=== PATIENT | male | born 1985 | race Caucasian/White ===

== ENCOUNTER 2021-03-31 08:08 | Emergency (ER) | payer OTHER ==
[~2021-03-31] VITALS: Ht 177.8 cm; Wt 94.0 kg
--- NOTE | 2021-03-31 08:55 | REP ---
INDICATION: fall injury COMPARISON: None. TECHNIQUE: AP, lateral, bilateral oblique views right wrist. FINDINGS: Comminuted intra-articular Colles' fracture of the distal radius. Carpal bones appear intact. IMPRESSION: Comminuted Colles' fracture of the distal radius. <Electronically signed by Blake Vera > 03/31/21 0810
[2021-03-31] MEDS ORDERED: ONDANSETRON 4MG/2ML VIAL IV ONE (09:55)
[2021-03-31] MEDS ORDERED: LR 1,000 ML IV SCH (09:55)
[2021-03-31] MEDS ORDERED: fentaNYL 100 MCG/2 ML INJECTION (J3010) IV ONE (09:55)
[2021-03-31 10:37] LABS: BASO % 0.3 % (0.0-1.0); EOS % 0.2 % (0.0-3.0); HEMATOCRIT 45.9 % (42.0-52.0); HEMOGLOBIN 15.2 g/dl (13.5-17.5); LYMPH # 1.2 10^3/uL (1.5-5.0); LYMPH % 8.7 % (24.0-44.0); MEAN CORPUSCULAR HEMOGLOBIN 30.5 pg (27.0-33.0); MEAN CORPUSCULAR HGB CONC 33.1 g/dl (32.0-36.5); MEAN CORPUSCULAR VOLUME 92.2 fl (80.0-96.0); MONO # 0.8 10^3/uL (0.0-0.8); NEUTROPHILS # 11.7 10^3/uL (1.5-8.5); NEUTROPHILS % 84.3 % (36.0-66.0); PLATELET COUNT, AUTOMATED 324 10^3/uL (150-450); RED BLOOD COUNT 4.98 10^6/uL (4.30-6.10); WHITE BLOOD COUNT 13.9 10^3/uL (4.0-10.0)
[2021-03-31 10:59] LABS: BLOOD UREA NITROGEN 14 MG/DL (7-18); CALCIUM LEVEL 9.2 MG/DL (8.5-10.1); CARBON DIOXIDE LEVEL 29 MEQ/L (21-32); CHLORIDE LEVEL 104 MEQ/L (98-107); CREATININE FOR GFR 1.02 MG/DL (0.70-1.30); GLOMERULAR FILTRATION RATE > 60.0 (>60); GLUCOSE, FASTING 162 MG/DL (70-100); POTASSIUM SERUM 3.9 MEQ/L (3.5-5.1); SODIUM LEVEL 139 MEQ/L (136-145)
[2021-03-31] MEDS ORDERED: BUPIVACAINE/EPIN 0.5% 30 ML VIAL IM STA (11:50)
[2021-03-31] MEDS ORDERED: MORPHINE 4 MG/ML 1ML VIAL/SYRINGE (J2270) IV ONE (12:25)
[2021-03-31] MEDS ORDERED: HYDR-3713 PO ×2 (13:26→13:31)
--- NOTE | 2021-03-31 13:39 | REP ---
INDICATION: post reduction images per orthopedics. COMPARISON: None. TECHNIQUE: 2 x 2 mm increments using helical technique and reconstructed in both sagittal and coronal planes. FINDINGS: There is a comminuted intra-articular distal radial fracture with dorsal angulation and dorsal displacement. There is an ulnar styloid fracture. IMPRESSION: Comminuted intra-articular Colles fracture as described above. The degree of displacement and angulation appears to have improved significantly compared to the prior plain film examination obtained earlier today. <Electronically signed by Manuel Gomez > 03/31/21 [id number]
[2021-03-31 13:50] VITALS: BP 131/68
--- NOTE | 2021-03-31 15:25 | CR.PDOC ---
General Date of Consultation: Mar 31, 2021 Consultation REASON FOR CONSULTATION/CHIEF COMPLAINT: Right distal radius fracture and ulnar styloid fracture HISTORY OF PRESENT ILLNESS: Patient was reportedly leaving his hotel this morning when he slipped on ice and fell onto an outstretched hand. He had immediate deformity pain and swelling. 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 He is right-hand dominant. He reports that he has had at least 2 wrist fractures in the past as well as 5th finger fracture treated with open reduction internal fixation. The patient reports that he has a flight booked for return to [place] tomorrow and has an appointment with an orthopedic surgeon in his hometown for . Patient is not diabetic and does not smoke ALLERGIES: Please see below. HOME MEDICATIONS: Please see below. PAST MEDICAL HISTORY: As above PAST SURGICAL HISTORY: As above FAMILY HISTORY: Noncontributory SOCIAL HISTORY: Non-smoker REVIEW OF SYSTEMS: Denies pain aside from right wrist. Reports that he does have some tingling and numbness to the hand particularly in the radial and median nerve distributions. PHYSICAL EXAMINATION: VITAL SIGNS: Please see below. GENERAL APPEARANCE: Alert and oriented and in no acute distress EXTREMITIES: Right arm is splinted and supported in an elevated position. Splint was removed. The patient demonstrated an obvious Colles' type deformity fracture with some bruising and no evidence of open fracture otherwise. Swelling was also apparent. NEUROLOGICAL: Patient was grossly neurovascularly intact to light touch to median, ulnar and radial nerve distributions. Motor was noted to be intact to these distributions as well as the AIN distribution Vascular: Palpable radial pulse right upper extremity LABORATORY DATA: Please see below. X-ray imaging was independently ordered and reviewed by myself: This dem onstrated a comminuted intra-articular distal radius fracture with an ulnar styloid fracture possibly acute CT scan was independently ordered and reviewed by myself. This demonstrates the intra-articular distal radius fracture of the right wrist with the associated ulnar styloid fracture in an improved position. ASSESSMENT/PLAN: 1. Conscious sedation was not available in the emergency room due to the monitoring rooms being occupied so the decision was made to do a closed reduction using a hematoma block and finger traps. The patient signed consent for this procedure. The dorsum of the wrist was cleansed with chlorhexidine swabs x2 and then using a 25-gauge needle a hematoma block was performed with approximately 20 mL of Marcaine with epinephrine being instilled in a widely distributed fanned out manner to the hematoma/fracture site and soft tissues. The patient tolerated this well and was allowed to rest for approximately 5 minutes or so while the fingertrap apparatus was set. He was unable to elevate his arm without any significant discomfort finger traps were applied to the thumb and index finger. Slowly the patient was allowed to have gravity stress with a weight of his arm applied. He showed no discomfort or otherwise. To 1 L normal saline bags were applied across the arm to add additional pressure and assist gravity with the reduction. The patient tolerated this well with no complaints or concerns. Gentle manipulation of the fracture site, exaggerating the fracture was completed. Once the appropriate traction and reduction appeared to be complete, the arm was wrapped with web roll and then volar and dorsal plaster slabs were applied followed by the application of an Aly wrap. The patient was taken out of the finger traps and traction was applied to the second and third digits with some slight ulnar volar deviation and compression across the fracture site. This was held until the plaster slabs were hardened. Post splinting, the patient's neurovascular status was reassessed and as above he was found to have intact sensation to the median, ulnar and radial nerve distributions. He was able to demonstrate motor to these distributions as well as the AIN. His fingers were pink and he had a capillary refill less than 2 seconds. 2. The patient has an intra-articular fracture and I explained that he will likely require surgical intervention for this. I ordered a CT scan to evaluate the articular surface and the patient will have a copy of this burned on disc to accompany him to his orthopedic surgery visit next week. I advised him on when to be seen at an urgent care or emergency room. And how to keep swelling etc. from becoming an issue with elevation. The patient was discharged after his CT scan by the emergency room [facility]. He will follow up in [place] in his hometown as planned. Vital Signs/I&O Vital Signs Date Time Temp Pulse Resp B/P (MAP) Pulse Ox O2 Delivery O2 Flow Rate FiO2 03/31/21 13:50 97.3 76 18 131/68 (89) 95 Room Air Laboratory Data Labs 24H Laboratory Tests 2 03/31/21 10:10: Immature Granulocyte % (Auto) 0.5, Neutrophils (%) (Auto) 84.3H, Lymphocytes (%) (Auto) 8.7L, Monocytes (%) (Auto) 6.0, Eosinophils (%) (Auto) 0.2, Basophils (%) (Auto) 0.3, Neutrophils # (Auto) 11.7H, Lymphocytes # (Auto) 1.2L, Monocytes # (Auto) 0.8, Eosinophils # (Auto) 0.0, Basophils # (Auto) 0.0, Nucleated Red Blood Cells % (auto) 0.0, Anion Gap 6L, Glomerular Filtration Rate > 60.0, Calcium Level 9.2 03/31/21 11:26: Coronavirus (COVID-19)(PCR) NEGATIVE CBC/BMP Laboratory Tests 03/31/21 10:10 Allergies Coded Allergies: No Known Allergies (Unverified , 03/31/21) Home Medications Scheduled PRN Hydrocodone/Acetaminophen (Hydrocodone-Acetamin 5-325 mg) 1 Each Tablet, 1-2 TAB PO Q4-6HP PRN for pain for 5 Days, #20 DENIS HERNANDEZ MD Mar 31, 2021 15:25
== END 2021-03-31 14:00 | disposition home or self-care (01) ==
LOC: M ED 08:08
DX: S52.571A Other intraarticular fracture of lower end of right radius, initial encounter for closed fracture (principal); S52.614A Nondisplaced fracture of right ulna styloid process, initial encounter for closed fracture; W19.XXXA Unspecified fall, initial encounter; Y92.9 Unspecified place or not applicable; Y93.9 Activity, unspecified; Y99.9 Unspecified external cause status
CPT/HCPCS: 25605; 73110; 73200; 80048; 85025; 96361; 96372; 96374; 96375; 99284; J2270; J2405; J3010; U0002